=== PATIENT | male | born 1980 | race Caucasian/White ===

== ENCOUNTER 2024-05-26 11:43 | Emergency (ER) | payer OTHER, SELFPAY ==
[2024-05-26 11:45] VITALS: BP 118/83; PULSE 92; RESP 16; TEMP 36.4; O2SAT 98; BMI 30.8
--- NOTE | 2024-05-26 12:06 | DI.US.S_ITS ---
PROCEDURE: US SCROTUM INDICATIONS: L testicular pain; hx of testicular ca TECHNIQUE: Real-time scanning was performed of the scrotum and testicles, with image documentation. Color and pulse Doppler interrogation was performed of both testicles. COMPARISON: [facility], US, US TESTICULAR SCROTUM + DOPPLER, 01/15/2024, 12:02. FINDINGS: Right: Status post orchiectomy. Left: Testicle is normal in size at 6.1 x 2.0 x 3.2 cm, and homogeneous in echotexture. Epididymis is normal in overall size and morphology. No hydrocele or varicoceles. Overlying scrotal skin is normal in thickness. Doppler: Color and pulse Doppler demonstrate normal and symmetric arterial flow in both testicles. IMPRESSION: Status post right orchiectomy. Normal sonographic appearance of the left testicle and epididymis. Approved by: Gildardo Dumont M.D. on 05/26/2024 at 13:02
[2024-05-26 12:45] VITALS: BP 135/87; PULSE 86; RESP 14; O2SAT 99
--- NOTE | 2024-05-26 12:49 | DI.CT.S_ITS ---
PROCEDURE: CT CHEST ABD PEL W CON INDICATIONS: LLQ pain, testicular pain; hx testicular cancer TECHNIQUE: After the administration of intravenous contrast, 5 mm thick sections acquired from the lung apices to the symphysis. 2.5 mm thick coronal and sagittal reformats were acquired. Additional 7 mm thick coronal maximum intensity projection (MIP) reformats acquired through the lungs. Optional 10-minute delayed imaging may be performed from the kidneys to the bladder. For radiation dose reduction, the following was used: automated exposure control, adjustment of mA and/or kV according to patient size. COMPARISON: None. FINDINGS: Image quality: Diagnostic. CHEST: Lower Neck: No enlarged lymph nodes. Thyroid: No thyroid nodules which require sonographic evaluation. Axillae: No enlarged lymph nodes. Chest Wall: No subcutaneous gas. Lungs and Pleura: No pulmonary contusions or lacerations. No acute airspace opacities. No pneumothorax or hemothorax. 4 mm average diameter solid nodule is seen at the left lung base (246/5). 4 mm solid subpleural left lower lobe nodule (239/5). Mediastinum: No mediastinal hematomas. Heart size is normal. No pericardial effusion. Thoracic aorta and pulmonary arteries demonstrate normal size and enhancement. No mediastinal or hilar adenopathy. Esophagus is normal in caliber. No hiatal hernia. ABDOMEN: Liver: No lacerations. Gallbladder: No radiopaque gallstones or wall thickening. Biliary ducts: No biliary dilation. Pancreas: Homogenous enhancement. Spleen: Homogenous enhancement without laceration or hematoma. Adrenal Glands: Indeterminate 1.4 cm left adrenal nodule. Kidneys and Ureters: Symmetric enhancement. No hydronephrosis. No solid mass. No complex renal cystic lesion which requires follow up. Stomach and Bowel: A few diverticula are seen in the colon. There is bowel wall thickening and inflammatory fat stranding surrounding a diverticulum at the distal descending colon. No pneumoperitoneum or focal fluid collection. Small bowel loops and stomach are unremarkable. Peritoneum: No abnormal intraperitoneal fluid. No free air. Ventral Wall: No hernia. Abdominal Nodes: No retroperitoneal or mesenteric adenopathy by size criteria. Vessels: Aorta and inferior vena cava are normal in size. PELVIS: Pelvic Organs: Status post right orchiectomy. Bladder: Normal thickness. Pelvic Nodes: No enlarged lymph nodes. Miscellaneous: No inguinal hernias are seen. Bones: Pelvic ring and hip joints appear intact. No displaced rib fractures. IMPRESSION: 1. Acute uncomplicated descending colonic diverticulitis. 2. Nonspecific small left lower lobe pulmonary nodules measuring up to 4 mm. 3. Indeterminate 1.4 cm left adrenal nodule. If no previous studies are available for comparison, consider follow-up adrenal protocol CT or MRI in 12 months. Approved by: Gildardo Dumont M.D. on 05/26/2024 at 13:21
[2024-05-26 12:56] LABS: Add Manual Diff / Slide Review NO; Basophils Absolute Auto 100 /uL (0-100); Basophils Percent Auto 0.5 % (0-2); Eosinophils Absolute Auto 200 /uL (0-450); Eosinophils Percent Auto 1.5 % (2-4); Hematocrit 44.6 % (41-53); Hemoglobin 15.4 g/dL (13.5-17.5); Lymphocytes Absolute Auto 1800 /uL (1100-4500); Lymphocytes Percent Auto 11.8 % (25-40); Mean Corpuscular HGB Conc 34.5 % (30-36); Mean Corpuscular Hemoglobin 31.8 PG (26-34); Mean Corpuscular Volume 92.2 fL (80-100); Monocytes Absolute Auto 1600 /uL (0-900); Monocytes Percent Auto 10.4 % (3-14); Neutrophils Absolute Auto 11600 /uL (1500-7000); Neutrophils Percent Auto 75.8 % (50-75); Platelet Count 216 X10^3/uL (150-400); Red Blood Cell Count 4.84 X10^6/uL (4.5-5.9); Red Cell Distribution Width 12.8 % (11.6-14.8); White Blood Cell Count 15.4 X10^3/uL (4.5-11.0)
[2024-05-26] MEDS: KETOROLAC 30 MG/ML VIAL 15 MG IV (12:57)
--- NOTE | 2024-05-26 13:04 | ED_ITS ---
HPI - Abdominal Pain <Teddy Patino PA-C - Last Filed: 05/26/24 13:59> General Chief Complaint: Abdominal Pain Stated Complaint: abdand testicular px Time Seen by Provider: 05/26/24 12:01 Source: patient Mode of arrival: Family Vehicle History of Present Illness HPI narrative: 43-year-old male with past medical history hypertension, gout, testicular cancer, status post right orchiectomy presents to the ED with 2 days of left lower quadrant and left testicular pain. Patient states he was diagnosed with testicular cancer and had a right orchiectomy in January 2024. Patient states he is scheduled for a follow-up in 6 months. Patient endorses spontaneous onset of left lower quadrant and left testicular pain 2 days ago. Patient states that it has been worsening, he was unable to sleep last night, endorses 8 or 9/10 pain. Patient denies fever, chills, chest pain, shortness of breath, dysuria, nausea, vomiting, lightheadedness, dizziness, syncope. Patient does endorse some lower back pain, although that is his baseline. Patient endorses a headache. Last bowel movement was yesterday. Patient endorses being constipated for the past few days. Related Data Previous Rx's Medication Instructions Recorded ciprofloxacin HCl 500 mg tablet 500 mg PO BID 5 days #10 tabs 05/26/24 (Cipro) metronidazole 500 mg tablet 500 mg PO Q8H 5 days #15 tabs 05/26/24 tramadol 50 mg tablet 50 mg PO Q6H PRN pain 3 days #12 05/26/24 tabs Review of Systems <Teddy Patino PA-C - Last Filed: 05/26/24 13:59> Constitutional Constitutional: Denies chills, Denies fatigue, Denies fever(s), Denies frequent falls, Denies lethargy and Denies weakness Eyes Eyes: Denies change in vision, Denies eye discharge, Denies irritation and Denies loss of vision ENT Ears, Nose, Mouth, and Throat: Denies change in voice, Denies dizziness, Denies neck pain, Denies sore throat and Denies throat swelling Cardiovascular Cardiovascular: Denies chest pain, Denies irregular heart rhythm, Denies lightheadedness, Denies palpitations, Denies dyspnea, Denies dyspnea on exertion and Denies orthopnea Respiratory Respiratory: Denies cough, Denies dyspnea, Denies dyspnea on exertion and Denies wheezing Gastrointestinal Gastrointestinal: Reports abdominal pain, Denies change in bowel habits, Denies diarrhea, Denies nausea and Denies vomiting Genitourinary Genitourinary: Reports testicular pain Musculoskeletal Musculoskeletal: Denies neck pain and Denies numbness Integumentary/Breasts Skin/Breast: Denies pruritus, Denies erythema, Denies rash and Denies wounds Neurologic Neurologic: Denies behavioral changes, Denies confusion, Denies dizziness, Denies frequent falls, Denies loss of vision, Denies numbness and Denies weakness Psychiatric Psychiatric: Denies anxiety, Denies behavioral changes, Denies confusion, Denies depression, Denies homicidal ideation and Denies suicidal ideation Endocrine Endocrine: Denies fatigue, Denies flushing and Denies palpitations Hematologic/Lymphatic Hematologic/Lymphatic: Denies easy bruising Allergic/Immunologic Allergic/Immunologic: Denies urticaria, Denies throat swelling and Denies wheezing Exam <Teddy Patino PA-C - Last Filed: 05/26/24 13:59> Narrative Exam Narrative: Const General:?cooperative, healthy appearing and comfortable [facility] Head:?normal to inspection Ears:?hearing grossly normal bilaterally Nose:?external nose normal Face and sinus:?normal facial exam and sinuses nontender Mouth:?oral mucosae normal Throat:?posterior oropharynx normal Eyes General:?appearance normal, both eyes and all related structures Neck Neck:?normal visual inspection and no lymphadenopathy noted Resp Effort & Inspection:?normal respiratory effort Auscultation:?clear to auscultation bilaterally Cardio Rate:?regular rate Rhythm:?regular rhythm GI Abdomen is soft, nondistended. Abdomen is tender to palpation in the left lower quadrant. No CVA tenderness. Skin overlying scrotum without erythema, swelling. No palpable masses, no tenderness to palpation of left testicle. s/p R orchiectomy. Neuro General:?patient alert, patient awake and patient oriented x3 Initial Vital Signs Initial Vital Signs: Vital Signs Temperature 97.6 F 05/26/24 11:45 Pulse Rate 92 H 05/26/24 11:45 Respiratory Rate 16 05/26/24 11:45 Blood Pressure 118/83 05/26/24 11:45 Pulse Oximetry 98 05/26/24 11:45 Oxygen Delivery Method Room Air 05/26/24 11:45 <DO Radha Barba Filed: 05/26/24 14:16> Initial Vital Signs Initial Vital Signs: Vital Signs Temperature 97.6 F 05/26/24 11:45 Pulse Rate 92 H 05/26/24 11:45 Respiratory Rate 16 05/26/24 11:45 Blood Pressure 118/83 05/26/24 11:45 Pulse Oximetry 98 05/26/24 11:45 Oxygen Delivery Method Room Air 05/26/24 11:45 Course <Teddy Patino PA-C - Last Filed: 05/26/24 13:59> Orders Ordered: ED Orders 05/26/24 12:06 US scrotum Stat 05/26/24 12:40 CBC Auto Diff [Complete Blood Count AUTO DIFF] Stat CMP [Comprehensive Metabolic Panel] Stat Lipase Stat 05/26/24 12:49 CT chest abd pel w con Stat Discontinued Medications Ketorolac Tromethamine (Ketorolac 30 Mg/Ml Vial) 15 mg IV NOW ONE Stop: 05/26/24 12:49 Last Admin: 05/26/24 12:57 Dose: 15 mg Documented By: SPF Vital Signs Vital signs: Vital Signs - 8 hr 05/26/24 11:45 05/26/24 12:45 05/26/24 13:50 Temperature 97.6 F Pulse Rate 92 H 86 80 Respiratory Rate 16 14 16 Blood Pressure 118/83 135/87 111/75 Pulse Oximetry 98 99 96 Oxygen Delivery Method Room Air Room Air Room Air <Sam Blancas DO - Last Filed: 05/26/24 14:16> Orders Ordered: ED Orders 05/26/24 12:06 US scrotum Stat 05/26/24 12:40 CBC Auto Diff [Complete Blood Count AUTO DIFF] Stat CMP [Comprehensive Metabolic Panel] Stat Lipase Stat 05/26/24 12:49 CT chest abd pel w con Stat Discontinued Medications Ketorolac Tromethamine (Ketorolac 30 Mg/Ml Vial) 15 mg IV NOW ONE Stop: 05/26/24 12:49 Last Admin: 05/26/24 12:57 Dose: 15 mg Documented By: SPF Vital Signs Vital signs: Vital Signs - 8 hr 05/26/24 11:45 05/26/24 12:45 05/26/24 13:50 Temperature 97.6 F Pulse Rate 92 H 86 80 Respiratory Rate 16 14 16 Blood Pressure 118/83 135/87 111/75 Pulse Oximetry 98 99 96 Oxygen Delivery Method Room Air Room Air Room Air MDM - Abdominal Pain <Hyma XOCHITL Patino - Last Filed: 05/26/24 13:59> Lab Data 05/26/24 12:40 05/26/24 12:40 Labs: Lab Results 05/26/24 Range/Units 12:40 WBC 15.4 H (4.5-11.0) X10^3/uL RBC 4.84 (4.5-5.9) X10^6/uL Hgb 15.4 (13.5-17.5) g/dL Hct 44.6 (41-53) % MCV 92.2 (80-100) fL MCH 31.8 (26-34) PG MCHC 34.5 (30-36) % RDW 12.8 (11.6-14.8) % Plt Count 216 (150-400) X10^3/uL Neut % (Auto) 75.8 H (50-75) % Lymph % (Auto) 11.8 L (25-40) % [place] % (Auto) 10.4 (3-14) % Eos % (Auto) 1.5 L (2-4) % Baso % (Auto) 0.5 (0-2) % Neut # (Auto) 52058 H (1194-3054) /uL Lymph # (Auto) 1800 (3699-1650) /uL [place] # (Auto) 1600 H (0-900) /uL Eos # (Auto) 200 (0-450) /uL Baso # (Auto) 100 (0-100) /uL Sodium 136 L (137-145) mmol/L Potassium 4.2 (3.4-5.1) mmol/L Chloride 100 (98-107) mmol/L Carbon Dioxide 28 (22-32) mmol/L BUN 9 (9-20) mg/dL Creatinine 1.06 (0.66-1.25) mg/dL Estimated GFR > 60 (>60) mL/min BUN/Creatinine Ratio 8.5 (6-22) Glucose 108 H (70-100) mg/dL Calcium 9.3 (8.4-10.2) mg/dL Total Bilirubin 1.2 (0.2-1.3) mg/dL AST 25 (17-59) IU/L ALT 27 (<50) IU/L Alkaline Phosphatase 68 (38-126) U/L Total Protein 8.2 (6.3-8.2) g/dL Albumin 4.8 (3.5-5.0) g/dL Globulin 3.4 (1.7-4.1) g/dL Albumin/Globulin Ratio 1.4 (1.0-2.8) Lipase 52 (23-300) U/L Point of care testing: Urine Dip Bedside Urine Glucose Negative Bedside Urine Bilirubin - Negative Bedside Urine Ketone - Negative Urine Specific [place] 1.005 Bedside Urine Occult Blood - Negative Bedside Urine pH 7.0 Bedside Urine Protein - Negative Bedside Urine Urobilinogen - Negative Bedside Urine Nitrite - Negative Bedside Urine Leukocytes - Negative Esterase MDM Narrative Medical decision making narrative: 43-year-old male with past medical history hypertension, gout, testicular cancer, status post right orchiectomy presents to the ED with 2 days of left lower quadrant and left testicular pain. Concern for epididymitis versus orchitis versus UTI versus malignancy versus diverticulitis versus other intra- abdominal pathology versus other. Will obtain scrotal ultrasound, CT chest abdomen pelvis, labs. Will give Toradol for pain. Moderate pain control achieved with Toradol. WBC elevated to 15.4. All other labs within normal limits. Scrotal ultrasound without acute findings. CT chest abdomen pelvis shows acute uncomplicated descending colonic diverticulitis. There are nonspecific small left lower lobe pulmonary nodules measuring up to 4 mm. There is an indeterminate 1.4 cm left adrenal nodule. Discussed findings with patient. Prescribed antibiotics, pain medication. Discussed diet modifications and advancements. Recommend follow-up with PCP for the diverticulitis as well as the incidental CT findings. ED return precautions were discussed with patient. Patient verbalized understanding. Medical records reviewed: Yes <Sam Blancas DO - Last Filed: 05/26/24 14:16> Lab Data Labs: Lab Results 05/26/24 Range/Units 12:40 WBC 15.4 H (4.5-11.0) X10^3/uL RBC 4.84 (4.5-5.9) X10^6/uL Hgb 15.4 (13.5-17.5) g/dL Hct 44.6 (41-53) % MCV 92.2 (80-100) fL MCH 31.8 (26-34) PG MCHC 34.5 (30-36) % RDW 12.8 (11.6-14.8) % Plt Count 216 (150-400) X10^3/uL Neut % (Auto) 75.8 H (50-75) % Lymph % (Auto) 11.8 L (25-40) % [place] % (Auto) 10.4 (3-14) % Eos % (Auto) 1.5 L (2-4) % Baso % (Auto) 0.5 (0-2) % Neut # (Auto) 73854 H (7474-3396) /uL Lymph # (Auto) 1800 (9375-4566) /uL [place] # (Auto) 1600 H (0-900) /uL Eos # (Auto) 200 (0-450) /uL Baso # (Auto) 100 (0-100) /uL Sodium 136 L (137-145) mmol/L Potassium 4.2 (3.4-5.1) mmol/L Chloride 100 (98-107) mmol/L Carbon Dioxide 28 (22-32) mmol/L BUN 9 (9-20) mg/dL Creatinine 1.06 (0.66-1.25) mg/dL Estimated GFR > 60 (>60) mL/min BUN/Creatinine Ratio 8.5 (6-22) Glucose 108 H (70-100) mg/dL Calcium 9.3 (8.4-10.2) mg/dL Total Bilirubin 1.2 (0.2-1.3) mg/dL AST 25 (17-59) IU/L ALT 27 (<50) IU/L Alkaline Phosphatase 68 (38-126) U/L Total Protein 8.2 (6.3-8.2) g/dL Albumin 4.8 (3.5-5.0) g/dL Globulin 3.4 (1.7-4.1) g/dL Albumin/Globulin Ratio 1.4 (1.0-2.8) Lipase 52 (23-300) U/L Point of care testing: Urine Dip Bedside Urine Glucose Negative Bedside Urine Bilirubin - Negative Bedside Urine Ketone - Negative Urine Specific [place] 1.005 Bedside Urine Occult Blood - Negative Bedside Urine pH 7.0 Bedside Urine Protein - Negative Bedside Urine Urobilinogen - Negative Bedside Urine Nitrite - Negative Bedside Urine Leukocytes - Negative Esterase Discharge Plan Departure Patient Disposition: Home Clinical Impression: Diverticulitis Instructions: DI for Diverticulitis Activity Restrictions/Additional Instructions: You were evaluated in the ED today for left-sided abdominal pain. The ultrasound of the scrotum was normal. Your CT scan did show an infection the colon, namely diverticulitis. You are being prescribed antibiotics and pain medications for it. A liquid diet is advised over the next 2-3 days, and you can gradually advance it to more normal diet. Please follow-up with your PCP in 3-[address] scan did also show some incidental findings such as a left adrenal nodule and to left lung nodules. Please follow-up with your PCP for further evaluation of this. Return to the ED if you have worsening symptoms. Prescriptions: New ciprofloxacin HCl [Cipro] 500 mg tablet 500 mg PO BID 5 Days Qty: 10 0RF metronidazole 500 mg tablet 500 mg PO Q8H 5 Days Qty: 15 0RF tramadol 50 mg tablet 50 mg PO Q6H PRN (Reason: pain) 3 Days Qty: 12 0RF Referrals: Miscellaneous,Doctor, MD [Primary Care Provider] - Stand Alone Forms: Patient Portal/API ED Sign-out <Sam Blancas, DO - Last Filed: 05/26/24 14:16> [facility] Dr Blancas Co-Sign Statement: I was available for consultation during this patient's emergency department visit. This chart is signed by myself for administrative purposes only. I did not have direct contact with this patient during this visit. They were seen independently by the APC.
[2024-05-26 13:05] LABS: Alanine Aminotransferase 27 IU/L (<50); Albumin 4.8 g/dL (3.5-5.0); Albumin Globulin Ratio 1.4 (1.0-2.8); Alkaline Phosphatase 68 U/L (38-126); Aspartate Aminotransferase 25 IU/L (17-59); BUN Creatinine Ratio 8.5 (6-22); Bilirubin Total 1.2 mg/dL (0.2-1.3); Blood Urea Nitrogen 9 mg/dL (9-20); Calcium 9.3 mg/dL (8.4-10.2); Carbon Dioxide 28 mmol/L (22-32); Chloride 100 mmol/L (98-107); Estimated Glomerular Filt Rate > 60 mL/min (>60); Globulin 3.4 g/dL (1.7-4.1); Glucose 108 mg/dL (70-100); HEMOLYSIS < 15 (0-50); Lipase 52 U/L (23-300); Potassium 4.2 mmol/L (3.4-5.1); Sodium 136 mmol/L (137-145); Total Protein 8.2 g/dL (6.3-8.2)
[2024-05-26 13:50] VITALS: BP 111/75; PULSE 80; RESP 16; O2SAT 96
== END 2024-05-26 14:01 | disposition home or self-care (01) ==
PROVIDERS: Emergency Provider Student in an Organized Health Care Education/Training Program
DX: K57.32 Diverticulitis of large intestine without perforation or abscess without bleeding (principal)
CPT/HCPCS: 36415; 71260; 74177; 76870; 80053; 81003; 83690; 85025; 96374; 99284; J1885; Q9967